=== PATIENT | female | born 1990 | race Caucasian/White ===

== ENCOUNTER 2017-08-30 18:53 | Emergency (ER) | payer MEDICAID ==
[~2017-08-30] VITALS: Ht 165.1 cm; Wt 68.0 kg
[2017-08-30] MEDS ORDERED: CEPHALEXIN 500 MG CAPSULE (19:31)
[2017-08-30] MEDS ORDERED: ALBUTEROL SULFATE 2.5 MG/3 ML NEBU NEB ONE (19:45)
--- NOTE | 2017-08-30 19:45 | NUR ---
Pt is received alert, responsive as she came in c/o lower back pain with SOB with pt is sating at 100-99% on Room Air. Her care continue as she is been monitor while awaits MD orders.
--- NOTE | 2017-08-30 20:03 | NUR ---
Pt is noted resting in bed as new orders noted for CXR, NEB treatment , LAB and U/A. Her care continue while monitor.
[2017-08-30 20:09] LABS: *URINE HCG, QUAL NEGATIVE (NEGATIVE)
[2017-08-30] MEDS ORDERED: ALBUTEROL SULFATE 2.5 MG/3 ML NEBU ONE (20:09)
[2017-08-30 20:10] LABS: *BILIRUBIN,URIN NEGATIVE (NEGATIVE); *BLOOD, URINE Trace-lysed (NEGATIVE); *COLOR,URINE YELLOW (YELLOW); *KETONES,URINE NEGATIVE (NEGATIVE); *PROTEIN,URINE NEGATIVE (NEGATIVE); *UROBILINOGEN,URINE 0.2 E.U./dl (NORMAL); LEUKOCYTE ESTERASE ,URINE 1+ (NEGATIVE); NITRITE, URINE NEGATIVE (NEGATIVE); PH,URINE 5.5 (5.0-8.0); UGLUCOSE NEGATIVE (NEGATIVE)
[2017-08-30 20:21] LABS: *CLARITY,URINE CLOUDY (CLEAR)
[2017-08-30 20:25] LABS: BACTERIA,URINE MODERATE /HPF (NONE SEEN); MUCUS,URINE MANY /LPF (0-FEW); SQUAMOUS EPITHELIAL CELL,UR MANY /HPF (NONE SEEN)
[2017-08-30 21:05] VITALS: BP 108/72
--- NOTE | 2017-08-30 21:06 | NUR ---
Pt is been discharge to home with all discharge instructions and Prescriptions given as ordered as she remain stable.
== END 2017-08-30 21:07 | disposition home or self-care (01) ==
LOC: ER 18:54
DX: N39.0 Urinary tract infection, site not specified (principal); M54.5 Low back pain; F17.200 Nicotine dependence, unspecified, uncomplicated; Z59.0 Homelessness; J45.909 Unspecified asthma, uncomplicated; Z88.2 Allergy status to sulfonamides
CPT/HCPCS: 71010; 81001; 84703; 94640; 99285; A4663